=== PATIENT | female | born 1965 | race Caucasian/White ===

== ENCOUNTER 2024-02-24 08:58 | Day surgery (SDC) | payer OTHER ==
[~2024-02-24] VITALS: Ht 149.9 cm; Wt 106.6 kg
[~2024-02-24 08:58] MED LIST: ALPRAZOLAM0.5 M2 PO; ATORVASTATIN CA10 MG PO; BASAGLAR TEM100 UNIT SC; BETIMOL0.5 % IO; COZAAR50 MG PO; CYMBALTA30 MG PO; FENOFIBRATE160 MG PO; LUNESTA3 MG PO; MONTELUKAST SOD10 MG PO; OMEGA 31000 MG PO; OMEPRAZOLE DR40 MG PO; TRULICITY3 MG/0.5 M SC; VALACYCLOVIR HYD1 GM PO; WELLBUTRIN XL300 MG PO; XALATAN 0.005%2.5 ML IO; ZOFRAN4 MG/TAB PO
[2024-02-24] MEDS ORDERED: FAMOTIDINE 10MG/ML 2ML SDV IV ONE (09:27)
[2024-02-24] MEDS ORDERED: SODIUM CHLORIDE 0.9% 1,000 ML IV ONE (09:27)
[2024-02-24 11:08] VITALS: BP 149/67
[2024-02-24] MEDS ORDERED: GLYCOPYRROLATE 0.2 MG/ML IV ONE (17:54)
[2024-02-24] MEDS ORDERED: PROPOFOL 200 MG/20 ML VIAL IV ONE (17:54)
[2024-02-24] MEDS ORDERED: LIDOCAINE HCL 2% 2ML SDV IV ONE (17:54)
== END 2024-02-24 11:19 | disposition home or self-care (01) | DRG 392 ==
LOC: ENDO 08:58
PROVIDERS: ATTEND Internal Medicine Gastroenterology
PROC: 0DB98ZX Excision of Duodenum, Via Natural or Artificial Opening Endoscopic, Diagnostic (ICD-10-PCS; principal; 2024-02-24)
PROC: 0DB78ZX Excision of Stomach, Pylorus, Via Natural or Artificial Opening Endoscopic, Diagnostic (ICD-10-PCS; 2024-02-24)
PROC: 0DB48ZX Excision of Esophagogastric Junction, Via Natural or Artificial Opening Endoscopic, Diagnostic (ICD-10-PCS; 2024-02-24)
DX: K29.70 Gastritis, unspecified, without bleeding (principal); K31.89 Other diseases of stomach and duodenum; E11.43 Type 2 diabetes mellitus with diabetic autonomic (poly)neuropathy; K31.84 Gastroparesis; I10 Essential (primary) hypertension; Z87.11 Personal history of peptic ulcer disease; Z79.899 Other long term (current) drug therapy; Z79.84 Long term (current) use of oral hypoglycemic drugs